=== PATIENT | male | born 1995 | race Caucasian/White ===

== ENCOUNTER 2021-05-09 02:52 | Emergency (ER) | payer MEDICAID, OTHER ==
[~2021-05-09] VITALS: Ht 167.6 cm; Wt 70.3 kg
--- NOTE | 2021-05-09 03:02 | NUR ---
pt bib RA. pt states he wants to be tested for STD. I informed him that the doctor needs to order this. When asked why he is here, that is what he tells me.
--- NOTE | 2021-05-09 05:25 | NUR ---
pt awake alert, steady on his feet. Pt unable to reach his girlfriend. Spoke with Dr. Zurita he is ok to call an uber and be discharged. Discharge papers done with the patient.
--- NOTE | 2021-05-09 05:26 | NUR ---
Patient discharged to home in stable condition. Written and verbal after care instructions given. Patient verbalizes understanding of instructions. Stressed follow up or return to ER for worsening s/s.
[2021-05-09 05:27] VITALS: BP 120/70
== END 2021-05-09 05:28 | disposition home or self-care (01) ==
LOC: ER 02:55
DX: F10.129 Alcohol abuse with intoxication, unspecified (principal); Y90.9 Presence of alcohol in blood, level not specified
CPT/HCPCS: A4663